=== PATIENT | male | born 1995 | race Caucasian/White ===

== ENCOUNTER 2024-01-24 14:51 | Emergency (ER) | payer OTHER ==
[~2024-01-24] VITALS: Ht 172.7 cm; Wt 84.8 kg
[2024-01-24 14:53] VITALS: BP 127/67; PULSE 70; RESP 18; TEMP 97.7; O2SAT 100
[2024-01-24 15:17] VITALS: BP 127/67; PULSE 70; RESP 18; TEMP 97.7; O2SAT 100
[2024-01-24] MEDS ORDERED: SULF-58 PO (16:26)
[2024-01-24] MEDS: LIDOCAINE MPF 1% 10 MG/ML VIAL INJ ONE (16:41)
== END 2024-01-24 16:41 | disposition home or self-care (01) ==
LOC: MED 14:51
DX: L03.012 Cellulitis of left finger (principal); S63.602A Unspecified sprain of left thumb, initial encounter; Z79.899 Other long term (current) drug therapy; W23.0XXA Caught, crushed, jammed, or pinched between moving objects, initial encounter; Y93.89 Activity, other specified; Y92.89 Other specified places as the place of occurrence of the external cause; Y99.8 Other external cause status
CPT/HCPCS: 10060; 11740; 73140; 99284; J2001; 99283

== ENCOUNTER 2024-06-03 14:18 | Emergency (ER) | payer OTHER ==
[~2024-06-03] VITALS: Ht 165.1 cm; Wt 92.1 kg
[~2024-06-03 14:18] MED LIST: SULF-58 PO
[2024-06-03 14:19] VITALS: BP 132/62; PULSE 73; RESP 15; TEMP 98.8; O2SAT 99
[2024-06-03] MEDS ORDERED: IBUP-2213 PO (14:44)
[2024-06-03] MEDS ORDERED: BENZ-300 PO (14:44)
== END 2024-06-03 14:49 | disposition home or self-care (01) ==
LOC: MED 14:18
DX: B34.9 Viral infection, unspecified (principal); Z79.899 Other long term (current) drug therapy
CPT/HCPCS: 99282